=== PATIENT | male | born 1995 | race Two or more races ===

== ENCOUNTER 2024-11-18 22:43 | Emergency (ER) | payer SELFPAY ==
[2024-11-18 22:44] VITALS: BP 178/105; PULSE 104; RESP 19; TEMP 37.1; O2SAT 96
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
[2024-11-18 23:52] VITALS: BP 151/108; PULSE 109
[2024-11-18] MEDS: cloNIDine HCL 0.1 MG TABLET PO (23:52)
[2024-11-18] MEDS: METOPROLOL TARTRATE 25 MG TABLET 100 MG PO (23:52)
[2024-11-18 23:56] VITALS: BP 151/108; PULSE 105; RESP 18; TEMP 36.9; O2SAT 99
== END 2024-11-18 23:56 ==
LOC: SERX 11-19 02:17
PROVIDERS: Emergency Provider Emergency Medicine
DX: Z02.89 Encounter for other administrative examinations (principal); Z04.1 Encounter for examination and observation following transport accident
CPT/HCPCS: 99282; A9270